=== PATIENT | female | born 1980 | race Caucasian/White ===

== ENCOUNTER 2023-12-23 20:06 | Emergency (ER) | payer OTHER ==
[~2023-12-23] VITALS: Ht 157.5 cm; Wt 69.4 kg
[2023-12-23 20:36] VITALS: BP 145/82; PULSE 102; RESP 20; TEMP 97.8; O2SAT 98
[2023-12-23] MEDS: ACETAMINOPHEN EXTRA STRENGTH 500 MG TAB PO ONE (23:01)
[2023-12-23] MEDS: IBUPROFEN 600 MG TAB PO ONE (23:01)
[2023-12-24] MEDS ORDERED: IBUP-2213 PO (00:19)
[2023-12-24 00:27] VITALS: BP 145/82; PULSE 102; RESP 20; TEMP 97.8; O2SAT 98
== END 2023-12-24 00:27 | disposition home or self-care (01) ==
LOC: MED 20:06
DX: S52.125A Nondisplaced fracture of head of left radius, initial encounter for closed fracture (principal); Z79.899 Other long term (current) drug therapy; W18.39XA Other fall on same level, initial encounter; Y93.89 Activity, other specified; Y92.89 Other specified places as the place of occurrence of the external cause; Y99.8 Other external cause status
CPT/HCPCS: 29105; 73080; 81025; 99285